=== PATIENT | female | born 1955 | race Caucasian/White ===

== ENCOUNTER → 2017-12-11 | Outpatient (CLI) | payer OTHER ==
--- NOTE | 2017-12-11 09:28 | WOMENS IMAGING REPORT ---
EXAM DESCRIPTION: BILAT SCREENING MAMMO W/CAD COMPLETED DATE/TIME: 12/11/2017 9:09 am REASON FOR STUDY: ROUTINE SCREENING MAMMOGRAM Z12.31 Z12.31 ENCNTR SCREEN MAMMOGRAM FOR MALIGNANT N EOPLASM OF MICHAEL COMPARISON: None. TECHNIQUE: Standard craniocaudal and mediolateral oblique views of each breast recorded using Cuponomiaa l acquisition. LIMITATIONS: None. FINDINGS: No masses, calcifications or architectural distortion. No areas of suspicion. Read with the assistance of CAD. .[facility] - R2 Cenova Version 1.3 .[facility] Imaging - R2 Cenova Version 1.3 .[facility] - R2 Cenova Version 2.4 .[facility] - R2 Cenova Version 2.4 .[facility] - R2 Flight Engineer Inspector Version 9.2 IMPRESSION: NORMAL MAMMOGRAM. BIRADS 1. BREAST DENSITY: b. There are scattered areas of fibroglandular density. BIRAD: 1 NEGATIVE RECOMMENDATION: ROUTINE SCREENING COMMENT: The patient has been notified of the results by letter per [place] requirements. Additional no tification policies are in place for contacting patient with suspicious or incomplete findings. Quality ID #[id number]: The [employer] recommends an annual screening mammogram for women aged 40 years or over. This facility utilizes a reminder system to ensure that all patients receive reminder letters, and/or direct phone calls for appointments. This includes reminders for routine scr eening mammograms, diagnostic mammograms, or other Breast Imaging Interventions when appropriate. Th is patient will be placed in the appropriate reminder system. The [employer] (ACR) has developed recommendations for screening MRI of the breast s in certain patient populations, to be used in conjunction with mammography. Breast MRI surveillanc e may be appropriate for women with more than 20% lifetime risk of developing breast cancer as deter mined by genetic testing, significant family history of the disease, or history of mantle radiation f or Hodgkins Disease. ACR Practice Guidelines 2008. TECHNICAL DOCUMENTATION: FINDING NUMBER: (1) ASSESSMENT: (1) JOB ID: [id number] [employer]- All Rights Reserved Reading location - IP/workstation name: [facility]
== END ==
LOC: WI 07:51
PROVIDERS: ATTEND Physician Assistant
DX: Z12.31 Encounter for screening mammogram for malignant neoplasm of breast (principal)
CPT/HCPCS: 77067

== ENCOUNTER 2018-12-01 09:27 | Emergency (ER) | payer OTHER ==
[2018-12-01] MEDS ORDERED: ONDANSETRON HCL INJ/PF 4 MG/2 ML SDV IV ONE (09:52)
[2018-12-01] MEDS ORDERED: FENTANYL CITRATE INJ/PF 100 MCG/2 ML AMPUL IV ONE ×2 (09:52→11:34)
--- NOTE | 2018-12-01 10:06 | ER Document Report ---
ED General - General Chief Complaint: Knee Pain Stated Complaint: RIGHT KNEE PAIN Time Seen by Provider: 12/01/18 09:46 Primary Care Provider: KARMEN BREWER PA-C [Primary Care Provider] - Follow up as needed Information source: Patient Notes: HPI: Patient is a 63-year-old female that was outside walking her dog when she tripped landing on her right knee. She complains of pain and swelling to her right knee. She also states some very minimal hip pain. She denies hitting her head, or pain to the ribs, her back, or extremities other than her right lower extremity. Patient denies being on blood thinners. She denies numbness or weakness distally to the right knee ROS: See HPI All other review of systems reviewed and otherwise negative Reviewed vital signs and nursing note as charted by RN. PHYSICAL EXAM: CONSTITUTIONAL: Alert and oriented and responds appropriately to questions. Well-appearing; well-nourished HEAD: Normocephalic; atraumatic EYES: PERRL; Conjunctivae clear, sclerae non-icteric ENT: Normal nose; no rhinorrhea; moist mucous membranes; pharynx without lesions noted NECK: Supple without meningismus; non-tender CARD: Regular rate and rhythm; no murmurs; symmetric distal pulses RESP: Normal chest excursion without splinting or tachypnea; breath sounds clear and equal bilaterally; no tenderness to anterior posterior palpation of the ribs ABD/GI: Normal bowel sounds; non-distended; soft, non-tender BACK: The back appears normal and is non-tender to palpation along the midline spine EXT: Decreased range of motion to the right leg with some swelling of the right knee. Patient has an elevated BMI so it is tough to palpate certain bony struc tures. No obvious dislocation noted. Neurovascularly intact distally with good toe movement, capillary refill, and pulses. Sensation is intact to light touch SKIN: No acute lesions noted NEURO: CN 2-12 intact; patient has full range of motion of all other 3 extremities PSYCH: The patient's mood and manner are appropriate. Grooming and personal hygiene are appropriate. TRAVEL OUTSIDE OF THE [place] IN LAST 30 DAYS: No - Related Data Allergies/Adverse Reactions: acetaminophen [From Percocet] Adverse Reaction (Intermediate, Verified 12/01/18 10:05) VOMITING hydrocodone [From [place]] Adverse Reaction (Intermediate, Verified 12/01/18 10:05) VOMITING morphine Adverse Reaction (Intermediate, Verified 12/01/18 10:05) VOMITING oxycodone [From Percocet] Adverse Reaction (Intermediate, Verified 12/01/18 10:05) VOMITING propoxyphene [From Darvocet-N] Adverse Reaction (Intermediate, Verified 12/01/18 10:05) VOMITING Home Medications: hctz, cymbalta, celebrex, xanax, tramadol, flexeril Past Medical History - Social History Smoking Status: Never Smoker Chew tobacco use (# tins/day): No Frequency of alcohol use: Rare Drug Abuse: None Family History: Reviewed & Not Pertinent Patient has suicidal ideation: No Patient has homicidal ideation: No - Past Medical History Cardiac Medical History: Reports: Hx Hypertension Psychiatric Medical History: Reports: Hx Depression Past Surgical History: Reports: Hx Cholecystectomy, Hx Hysterectomy Physical Exam - Vital signs Vitals: Temp Pulse Resp BP Pulse Ox 97.6 F 83 14 140/74 H 93 12/01/18 09:34 12/01/18 09:34 12/01/18 09:34 12/01/18 09:34 12/01/18 09:34 Course - Re-evaluation Re-evalutation: 12/01/18 10:05 Given the history and physical examination we will proceed to an x-ray of the right knee and hip. I will provide pain and nausea medications. I do not believe any other imaging or laboratory work is necessary at this moment. 12/01/18 11:12 I have called and spoke to the orthopedic surgeon on-call Dr. Gorman. He has reviewed the images. He believes that this should be handled by the trauma surgical team and advised that I call [facility]. I have been have called and spoken to Dr. Yarbrough. He has accepted the transfer. Patient's pain is controlled. We will place the patient in a knee immobilizer pending transfer. 12/01/18 11:14 Labs and coagulation panel unremarkable. - Vital Signs Vital signs: Temp Pulse Resp BP Pulse Ox 97.6 F 83 18 140/77 H 91 L 12/01/18 09:34 12/01/18 09:34 12/01/18 09:39 12/01/18 09:39 10/20/19 09:39 - Laboratory Result Diagrams: 12/01/18 10:30 12/01/18 10:30 Laboratory results interpreted by me: 12/01/18 12/01/18 10:30 10:30 Lymph % (Auto) 10.0 L Absolute Neuts (auto) 8.6 H Seg Neutrophils % 86.2 H BUN 32 H Glucose 138 H Discharge - Discharge Clinical Impression: Accidental fall Qualifiers: Encounter type: initial encounter Qualified Code(s): W19.XXXA - Unspecified fall, initial encounter Femoral distal fracture Qualifiers: Encounter type: initial encounter Fracture type: closed Fracture morphology: unspecified fracture morphology Laterality: right Qualified Code(s): S72.401A - Unspecified fracture of lower end of right femur, initial encounter for closed fracture Condition: Fair Disposition: [facility] Referrals: KARMEN BREWER PA-C [Primary Care Provider] - Follow up as needed
[2018-12-01 10:52] LABS: ABSOLUTE MONOCYTES (AUTO) 0.3 10^3/uL (0.1-1.4); ABSOLUTE NEUT (AUTO) 8.6 10^3/uL (1.7-8.2); BASOPHILS % (AUTO) 0.1 % (0-2); EOSINOPHILS % (AUTO) 0.4 % (0-6); HEMATOCRIT 37.4 % (36.0-47.0); HEMOGLOBIN 12.7 g/dL (12.0-15.5); MEAN CORPUSCULAR HEMOGLOBIN 30.7 pg (27.0-33.4); MEAN CORPUSCULAR HGB CONC 33.8 g/dL (32.0-36.0); MEAN CORPUSCULAR VOLUME 91 fl (80-97); MONOCYTES % (AUTO) 3.3 % (3-13); PLATELET COUNT 304 10^3/uL (150-450); RED BLOOD COUNT 4.13 10^6/uL (3.72-5.28); RED CELL DISTRIBUTION WIDTH 12.8 % (11.5-14.0); SEGMENTED NEUTROPHILS % (AUTO) 86.2 % (42-78); TOTAL CELLS COUNTED % (AUTO) 100 %
[2018-12-01 11:05] LABS: INTERNATIONAL RATION (INR) 0.94; PROTHROMBIN TIME 12.6 SEC (11.4-15.4)
[2018-12-01 11:09] LABS: ANION GAP 9 (5-19); BLOOD UREA NITROGEN 32 mg/dL (7-20); CALCIUM 9.4 mg/dL (8.4-10.2); CARBON DIOXIDE 28 mmol/L (22-30); CHLORIDE 101 mmol/L (98-107); GLUCOSE 138 mg/dL (75-110); POTASSIUM 4.4 mmol/L (3.6-5.0)
--- NOTE | 2018-12-01 11:50 | RADIOLOGY REPORT (SQ) ---
EXAM DESCRIPTION: PELVIS AP COMPLETED DATE/TIME: 12/01/2018 10:17 am REASON FOR STUDY: 6; fall COMPARISON: None. NUMBER OF VIEWS: One view TECHNIQUE: AP Pelvis LIMITATIONS: Nonstandard positioning, broken femur FINDINGS: MINERALIZATION: Grossly normal HIPS: No acute fracture or dislocation. No worrisome bone lesions. PELVIS AND SACRUM: No acute fracture or dislocation. No worrisome bone lesions. PUBIS AND ISCHIUM: No acute fracture. SOFT TISSUES: No findings. OTHER: No other significant finding. IMPRESSION: NEGATIVE STUDY OF THE PELVIS. COMMENT: Pelvic fractures are often occult on plain radiographs. If strong clinical suspicion for f racture, recommend CT or MR. TECHNICAL DOCUMENTATION: JOB ID: [id number] [employer]- All Rights Reserved Reading location - IP/workstation name: [email or web address]
--- NOTE | 2018-12-01 11:50 | RADIOLOGY REPORT (SQ) ---
EXAM DESCRIPTION: KNEE RIGHT 2 VIEWS COMPLETED DATE/TIME: 12/01/2018 10:17 am REASON FOR STUDY: 6; fall COMPARISON: None. NUMBER OF VIEWS: Two views. TECHNIQUE: AP and lateral radiographic images acquired of the right knee. LIMITATIONS: Nonstandard radiographic positioning FINDINGS: Comminuted acute spiral fracture distal right femoral diaphysis extending into the interco ndylar region of the distal femur. There is lateral rotation and valgus angulation at the fracture s ite. Alignment of the condyles with the tibial plateaus is intact. No patellar dislocation. No gross proximal tibia or fibula fracture IMPRESSION: Comminuted acute spiral fracture distal right femoral diaphysis extending into the inter condylar region of the distal femur TECHNICAL DOCUMENTATION: JOB ID: [id number] [employer]- All Rights Reserved Reading location - IP/workstation name: [email or web address]
[2018-12-01 14:07] VITALS: BP 123/74
--- NOTE | 2018-12-02 02:19 | EKG REPORT ---
SEVERITY:- NORMAL ECG - SINUS RHYTHM : Confirmed by: Reinaldo Spicer 02-Dec-2018 02:18:13
== END 2018-12-01 14:00 | disposition short-term general hospital (02) ==
LOC: ER 09:27
DX: S72.401A Unspecified fracture of lower end of right femur, initial encounter for closed fracture (principal); M25.561 Pain in right knee; W01.0XXA Fall on same level from slipping, tripping and stumbling without subsequent striking against object, initial encounter; Y93.K1 Activity, walking an animal; I10 Essential (primary) hypertension; Z90.49 Acquired absence of other specified parts of digestive tract; Z90.710 Acquired absence of both cervix and uterus
CPT/HCPCS: 93005; 36415; 85025; 85610; 80048; 73560; 72170; 93010; C1758; L1830; J3010; J2405; 51702; 96374; 96375; 96376; 99285